=== PATIENT | female | born 1975 | race Hispanic/Latino ===

== ENCOUNTER 2020-07-21 14:28 | Emergency (ER) | payer SELFPAY ==
--- NOTE | 2020-07-21 14:36 | PC.NURSE ---
pt at registration desk, and stating that the office staff at her pmd office said that results of last weeks blood work showed her thyroid levels were elevated, and told her that she needed to be seen for her bone joint pain, and left leg pain to rule out a blood clot since she had told the office staff that she was having pain still in the left lower leg x 2 weeks since they had seen her then, explained to pt that we would be more than happy to have our provider see her, and then send her to the ER of her choice to r/o DVT. pt states that she wasnt sure where she should go to begin with, and pt stated that she is going to go on to the ER. pt has a family member to drive her. pt left facility, ambulatory and stable at this time.
== END 2020-07-21 14:39 | disposition left against medical advice (07) ==
LOC: EXPCOLL 14:35
PROVIDERS: Emergency Provider Internal Medicine Hematology & Oncology
DX: Z53.21 Procedure and treatment not carried out due to patient leaving prior to being seen by health care provider (principal)
CPT/HCPCS: 99199

== ENCOUNTER 2020-07-21 18:34 | Emergency (ER) | payer SELFPAY ==
[2020-07-21 18:49] VITALS: BP 179/112; PULSE 98; RESP 18; TEMP 36.1; O2SAT 97
[2020-07-21 18:58] VITALS: BP 179/102; PULSE 80; RESP 16; O2SAT 99
--- NOTE | 2020-07-21 19:20 | ED.LOWEXIN ---
HPI - Extremity Injury (Lower) General Chief Complaint: Recheck/Abnormal Lab/Rx Stated Complaint: dvt/body pain Time Seen by Provider: 07/21/20 19:08 History of Present Illness HPI Narrative: 45 yo femal w/ h/o morbid obesity, htn, DM, hypothyroidism presents to the ED for extremity pain. She reports that she has pain in all extremities for awhile. The pain is worse in the lwer extremities, especially in the left lower leg. She noted intermittent color change and swelling in the leg. She is concerned that she may have a DVT. She is on exogenous hormones to control her period. No h/o blood clot. She had outpatient labs done and was told that she should come to the hospital. She does not know what labs she had done or what the concern was. No CP, SOB, fever. Related Data Home Medications Medication Instructions Recorded Confirmed levothyroxine [Euthyrox] 07/21/20 metformin mg 07/21/20 norethindrone acetate mg 07/21/20 07/21/20 Allergies Allergy/AdvReac Type Severity Reaction Status Date / Time No Known Allergies Allergy Unknown Verified 07/21/20 18:56 Review of Systems Review of Systems: All systems reviewed & are unremarkable except as noted in HPI and below Constitutional: Constitutional: Denies chills and Denies fever(s) ENT: Denies sore throat Cardiovascular: Cardiovascular: Denies chest pain Respiratory: Respiratory: Denies cough and Denies dyspnea Gastrointestinal: Gastrointestinal: Denies abdominal pain Genitourinary: Genitourinary: Denies dysuria Musculoskeletal: Musculoskeletal: Reports myalgias and Reports arthralgias Neurologic: Denies numbness and Denies weakness Endocrine: Endocrine: Reports fatigue PMF Past Medical History Medical History (Updated 07/22/20 @ 00:00 by Background Daemon) Diabetes HTN (hypertension) Hypothyroidism Morbid obesity Social History Social History (Updated 07/21/20 @ 19:47 by Fransico Muñiz MD) Smoking status: Never smoker Gender identity (if verbalized by the patient): Female Exam Const: General: no acute distress and alert Nutritional Appearance: obese morbidly obese Orientation/consciousness: patient oriented x3 HENMT: Head: normal to inspection Neck: Neck: normal visual inspection Resp: Effort & Inspection: normal respiratory effort Auscultation: clear to auscultation bilaterally Cardio: Rate: regular rate Rhythm: regular rhythm GI: GI Palp: Yes Soft to palpation and No Tenderness to palpation present (GI) Skin: General skin exam: normal color Rashes: no rashes Neuro: General: patient oriented x3, moves all extremities, no focal motor deficits and CN's II-XI intact bilaterally Speech: normal speech Extrem: Other: Mild left calf tenderness Course Vital Signs Vital signs: Vital Signs Temperature 36.1 C L 07/21/20 18:49 Pulse Rate 98 07/21/20 18:49 Respiratory Rate 18 07/21/20 18:49 Blood Pressure 179/112 H 07/21/20 18:49 Pulse Oximetry 97 07/21/20 18:49 Temperature 36.8 C 07/21/20 20:26 Pulse Rate 90 07/21/20 20:26 Respiratory Rate 16 07/21/20 20:26 Blood Pressure 170/93 H 07/21/20 20:26 Pulse Oximetry 97 07/21/20 20:26 MDM - Extremity Injury (Lower) MDM Narrative Medical decision making narrative: US not available right now. Cannot fully r/o DVT. I will have her return for the Doppler in the morning. I will repeat some labs since it is unclear why she was sent here. Differential Diagnosis Differential diagnosis: Likely other (DVT, cellulitis, Fibromyalgia, RA) Medical Records Attestation: I reviewed the patient's medical records. Lab Data Attestation: I reviewed the patient's lab results. Result diagrams: 07/21/20 19:35 07/21/20 19:35 Labs: Lab Results 07/21/20 07/21/20 07/21/20 Range/Units 19:35 19:35 19:35 WBC 5.4 (4.5-10.0) K/mm3 RBC 4.23 (4.2-5.4) M/mm3 Hgb 12.8 (12.0-15.0) g/dL Hct 37.2 (37.0-47.0) % MCV 87.9
[2020-07-21 19:41] LABS: Basophils Percent Auto 0.6 % (0.2-1.2); Eosinophils Absolute Auto 0.2 K/mm3 (0-0.3); Eosinophils Percent Auto 3.1 % (0-4.4); Hematocrit 37.2 % (37.0-47.0); Hemoglobin 12.8 g/dL (12.0-15.0); Immature Granulocyte Absolute 0.02 K/mm3 (0.00-0.031); Immature Granulocyte Percent A 0.4 % (0-0.5); Lymphocytes Absolute Auto 1.98 K/mm3 (0.9-3.2); Lymphocytes Percent Auto 36.4 % (18.3-44.2); Mean Corpuscular HGB Conc 34.4 g/dl (32-36); Mean Corpuscular Hemoglobin 30.3 pg (26-34); Mean Corpuscular Volume 87.9 fl (80-100); Mean Platelet Volume 9.9 fl (7.4-10.4); Monocytes Absolute Auto 0.4 K/mm3 (0.1-0.6); Monocytes Percent Auto 7.2 % (2.6-8.5); Neutrophils Absolute Auto 2.9 K/mm3 (1.3-6.7); Neutrophils Percent Auto 52.3 % (45.5-73.1); Platelet Count Result 216 k/mm3 (150-375); Red Blood Count 4.23 M/mm3 (4.2-5.4); Red Cell Distribution Width 14.6 % (11.5-14.5); White Blood Count 5.4 K/mm3 (4.5-10.0)
[2020-07-21 19:53] LABS: Anion Gap 7 mmol/L (8-16); Blood Urea Nitrogen 12 mg/dL (7-17); Calcium 9.3 mg/dL (8.4-10.2); Carbon Dioxide 26 mmol/L (22-30); Chloride 106 mmol/L (98-107); Estimated CRCL calculation 206 ml/min; Estimated Glomerular Filt Rate > 60; Glucose 103 mg/dL (65-105); Potassium 3.8 mmol/L (3.4-5.0); Prothrombin Time 13.6 Seconds (11.1-14.7); Sodium 139 mmol/L (137-145)
[2020-07-21 19:54] LABS: Partial Thromboplastin Time 25.7 SECONDS (22.3-36.8)
[2020-07-21 19:56] LABS: D Dimer 1.13 ug/mL (<0.48)
[2020-07-21] MEDS: ENOXAPARIN 100 MG/ML SYRINGE SUB-Q (20:17)
[2020-07-21] MEDS: ENOXAPARIN 80 MG/0.8 ML SYRINGE SUB-Q (20:17)
[2020-07-21 20:26] VITALS: BP 170/93; PULSE 90; RESP 16; TEMP 36.8; O2SAT 97
== END 2020-07-21 20:28 | disposition home or self-care (01) ==
PROVIDERS: Emergency Provider Emergency Medicine; PCP Internal Medicine Gastroenterology
DX: M79.662 Pain in left lower leg (principal); I10 Essential (primary) hypertension; E11.9 Type 2 diabetes mellitus without complications; E03.9 Hypothyroidism, unspecified; E66.01 Morbid (severe) obesity due to excess calories; Z68.44 Body mass index [BMI] 60.0-69.9, adult; Z79.84 Long term (current) use of oral hypoglycemic drugs
CPT/HCPCS: 36415; 80048; 85025; 85380; 85610; 85730; 96372; 99284; J1650

== ENCOUNTER 2020-07-22 07:18 | Outpatient (CLI) | payer SELFPAY ==
--- NOTE | ~2020-07-22 | US_ITS ---
EXAMINATION:US venous doppler LE BI INDICATION:Leg pain TECHNIQUE: Multiple grayscale, color flow and Doppler images of the right and left lower extremity de ep venous systems were obtained and reviewed. COMPARISON:No prior studies for comparison. FINDINGS: The common femoral, superficial femoral and popliteal veins demonstrate normal respiratory variation, augmentation and compressibility. Color flow is also seen within the posterior tibial, pe roneal, greater saphenous and profunda veins. IMPRESSION: 1: No lower extremity deep venous thrombosis. Reviewed, dictated and finalized at location A. N [facility]
== END 2020-07-22 07:19 | disposition home or self-care (01) ==
PROVIDERS: PCP Internal Medicine Gastroenterology; Visit Provider Internal Medicine Gastroenterology
DX: M79.661 Pain in right lower leg (principal); M79.662 Pain in left lower leg
CPT/HCPCS: 93970

== ENCOUNTER 2023-12-30 10:30 | Outpatient (CLI) | payer OTHER, SELFPAY ==
[2023-12-30 11:06] LABS: Alanine Aminotransferase 22 U/L (6-35); Albumin Level 4.3 g/dL (3.5-5.1); Alkaline Phosphatase 83 U/L (38-126); Anion Gap 7 mmol/L (4-12); Aspartate Amino Transferase 29 U/L (14-36); Bilirubin,Total 0.7 mg/dL (0.2-1.3); Blood Urea Nitrogen 10 mg/dL (7-17); Carbon Dioxide 24 mmol/L (22-30); Chloride 107 mmol/L (98-107); Cholesterol 160 mg/dL (0-200); Estimated Glomerular Filt Rate > 60; Glucose 103 mg/dL (65-110); HDL Direct 24 mg/dL; Sodium 138 mmol/L (137-145); Triglycerides 176 mg/dL (<150)
[2023-12-30 11:16] LABS: LDL Cholesterol Direct 118 mg/dL
[2023-12-30 11:24] LABS: Free T4 Free Thyroxine 1.89 ng/mL (0.78-2.19)
[2023-12-30 11:28] LABS: Creatinine Urine 119.2 mg/dL
[2023-12-30 11:33] LABS: MALB Creatinine Ratio 10.3 mg/g (0-30); Microalbumin Urine Random 12.3 mg/L (0-16.7)
== END 2023-12-30 10:31 | disposition home or self-care (01) ==
PROVIDERS: PCP Internal Medicine Gastroenterology; Referring Provider Internal Medicine Gastroenterology; Visit Provider Internal Medicine Endocrinology, Diabetes & Metabolism
DX: E11.9 Type 2 diabetes mellitus without complications (principal); Z68.43 Body mass index [BMI] 50.0-59.9, adult
CPT/HCPCS: 36415; 80053; 80061; 82043; 84439

== ENCOUNTER 2024-06-09 14:23 | Emergency (ER) | payer OTHER, SELFPAY ==
--- NOTE | ~2024-06-09 | XR_ITS ---
EXAMINATION: XR finger 2nd RT min 2V DATE: 06/09/2024 14:54 INDICATION: Amputation of the tip of the right second digit TECHNIQUE: Dorsal palmar, lateral and 2 oblique views of the right second digit were obtained COMPARISON: None FINDINGS: There is amputation of a small portion of the soft tissue at the distal tip of the right second digit . There is an associated tuft fracture of the second distal phalanx. A minimally displaced small frag ment bone is insufficient to account for the expected mild bone suggesting fracture is comminuted wit h loss of a portion of the bone. Bone alignment is otherwise normal. No other fractures identified. 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 No radiopaque fo reign bodies. IMPRESSION: 1. Amputation of a portion of the distal tip of the right second distal phalanx with associated open/ compound, comminuted tuft fracture with loss of a small portion of the bone. Reviewed, dictated and finalized at location A. IMPRESSION: 1. Amputation of a portion of the distal tip of the right second distal phalanx with associated open/compound, comminuted tuft fracture with loss of a small p ortion of the bone.
[2024-06-09 14:29] VITALS: BP 158/100; PULSE 87; RESP 18; TEMP 36.5; O2SAT 98
[2024-06-09] MEDS: ONDANSETRON INJ 4 MG/2 ML VIAL IV PUSH (14:52)
[2024-06-09] MEDS: TETANUS,DIPHTHERIA,AC PERTUSSIS ADULT (0.5 ML) BOOSTRIX IM (14:52)
[2024-06-09] MEDS: MORPHINE SULFATE (*CRX) 4 MG/ML INJ IV PUSH (14:52)
--- NOTE | 2024-06-09 15:00 | ED_ITS ---
HPI - Extremity Injury (Upper) General Chief Complaint: Extremity Injury, Upper Stated Complaint: cut off finger Time Seen by Provider: 06/09/24 14:38 Source: patient Mode of arrival: ambulatory Limitations: no limitations History of Present Illness HPI narrative: This is a 49 year old female that presents to the ER for right 2nd finger injury. Reports she accidentally shut her finger in the car door. Reports cut ting off the end of her finger. Reports bleeding and pain to the area. She is not up to date on tetanus. Reports decreased ROM due to pain. Denies numbness. Related Data Home Medications Medication Instructions Recorded Confirmed norethindrone acetate 5 mg tablet mg 07/21/20 04/05/24 folic acid 1 mg tablet 1 mg PO DAILY 12/30/23 04/05/24 hydroxychloroquine 200 mg tablet 200 mg PO BID 12/30/23 04/05/24 losartan 25 mg tablet 25 mg PO DAILY 12/30/23 04/05/24 methotrexate sodium 2.5 mg tablet 2.5 mg PO WEEKLY 12/30/23 04/05/24 levothyroxine 175 mcg tablet 175 mcg PO .COMPLEX 04/05/24 04/05/24 (Euthyrox) Allergies Allergy/AdvReac Type Severity Reaction Status Date / Time No Known Allergies Allergy Unknown Verified 04/05/24 11:42 Review of Systems Review of Systems: CONSTITUTIONAL: Denies fever SKIN: Reports laceration NEUROLOGIC: Denies numbness All systems reviewed & are unremarkable except as noted in HPI and below PMFSH Past Medical History Medical History (Updated 06/09/24 @ 17:40 by Brianna Jasso PA-C) Diabetes HTN (hypertension) Hyperlipidemia associated with type 2 diabetes mellitus Hypothyroidism Morbid obesity Surgical History Surgical History H/O gastric sleeve Family History Family History Daughter No problems noted. Father Diabetes mellitus Malignant neoplasm of prostate Mother Diabetes mellitus Cancer Kidney disease Social History Social History Smoking status: Never smoker Gender identity (if verbalized by the patient): Female Exam Narrative: GENERAL: Well-appearing, well-nourished, and in no acute distress. HEAD: Normocephalic, atraumatic. EYES: EOMI. EXTREMITIES: Normal range of motion. Normal sensation. Amputation of the soft tissue to the right hand 2nd finger distal phalanx SKIN: Warm, dry, no rash. NEURO: No focal deficits. Alert and oriented x3. PSYCH: Normal mood and affect Course Course Emergency Course: Patient agrees with plan of care Consultations Consultation #1: Spoke with [facility], was on time critical diagnosis Date: 06/09/24 Consultation #2: spoke with [facility], also on time critical diagnosis Date: 06/09/24 Consultation #3: spoke with Hand surgery, Dr. Mahoney, about patient and workup. Will place bandage and she can follow-up in his clinic in the morning Date: 06/09/24 Vital Signs Vital signs: Vital Signs Temperature 97.7 F 06/09/24 14:29 Pulse Rate 87 06/09/24 14:29 Respiratory Rate 18 06/09/24 14:29 Blood Pressure 158/100 H 06/09/24 14:29 Pulse Oximetry 98 06/09/24 14:29 Temperature 97.7 F 06/09/24 14:29 Pulse Rate 89 06/09/24 17:07 Respiratory Rate 18 06/09/24 17:07 Blood Pressure 139/88 06/09/24 17:07 Pulse Oximetry 100 06/09/24 17:07 MDM - Extremity Injury (Upper) MDM Narrative Medical decision making narrative: Patient presents the emergency department after cutting off the tip of her right 2nd finger. She is neurovascularly intact. Right 2nd finger x-ray shows amputation of a portion of the distal tip of the right 2nd distal phalanx with associated open, comminuted tuft fracture with loss of a small portion of the bone. wound was irrigated at. Patient given a dose of Ancef. Tetanus updated. She was bandaged as directed by Hand surgery. She will see the hand surgeon in the morning for follow-up. She was given warnings to return to the ER Differential Diagnosis Differential diagnosis: Likely other ( finger fracture, complex laceration) Imaging Data Radiologist's impression: ITS Impressions Finger X-Ray 06/09/24 14:55 IMPRESSION: 1. Amputation of a portion of the distal tip of the right second distal phalanx with associated open/compound, comminuted tuft fracture with loss of a small portion of the bone. Critical Care Time Critical Care Time Critical Care Time: No Discharge Plan Discharge Clinical Impression: Open finger fracture Qualifiers: Encounter type: initial encounter Finger: index finger Phalanx: distal Fracture alignment: displaced Laterality: right Qualified Code(s): S62.630B - Displaced fracture of distal phalanx of right index finger, initial encounter for open fracture Patient Disposition: Home, Self-Care Condition: Stable Instructions: Antibiotic Form, Finger Fracture (ED) Additional Instructions: Return to the emergency department if you experience fever, redness or swelling of your wound, abnormal drainage from your wound, or any other symptoms that are concerning to you. Take oral antibiotic as prescribed. Rest. Elevate. Over the counter pain medication as needed. Prescribed pain medication as needed. Leave bandage in place until you see the hand surgeon (Dr. Mahoney) in the morning He will see you at his [place] office at 9 AM. [address] [facility], [address] [place] [address] Prescriptions: New cephalexin 500 mg capsule 500 mg PO Q6H 7 Days Qty: 28 0RF hydrocodone-acetaminophen 5-325 mg tablet 1 tablet PO Q8H PRN (Reason: pain) Qty: 20 0RF No Action losartan 25 mg tablet 25 mg PO DAILY methotrexate sodium 2.5 mg tablet 2.5 mg PO WEEKLY hydroxychloroquine 200 mg tablet 200 mg PO BID folic acid 1 mg tablet 1 mg PO DAILY Ozempic 1 mg/dose (4 mg/3 mL) pen injector 1 mg subcut WEEKLY Qty: 9 1RF norethindrone acetate 5 mg tablet levothyroxine [Euthyrox] 175 mcg tablet 175 mcg PO .COMPLEX Rx Instructions: 175 mcg orally 6 days a week; rosuvastatin 5 mg tablet 5 mg PO DAILY Qty: 90 0RF Follow-up/Referrals: Mariangel,Walter Mott MD [Primary Care Provider] -
[2024-06-09] MEDS: ceFAZolin 1 GM/NS 50 ML 1 GM/50 ML BAG IVPB (15:52)
[2024-06-09 17:07] VITALS: BP 139/88; PULSE 89; RESP 18; O2SAT 100
[2024-06-09] MEDS: HYDROcodone/acetaminophen (*CRX) 5-325 MG TABLET 1 TAB PO (17:43)
[2024-06-09 18:44] VITALS: BP 129/90; PULSE 78; RESP 20; TEMP 36.6; O2SAT 100
== END 2024-06-09 18:46 | disposition home or self-care (01) ==
PROVIDERS: Emergency Provider Physician Assistant; PCP Internal Medicine Gastroenterology
DX: S62.630B Displaced fracture of distal phalanx of right index finger, initial encounter for open fracture (principal); W23.0XXA Caught, crushed, jammed, or pinched between moving objects, initial encounter; E11.9 Type 2 diabetes mellitus without complications; I10 Essential (primary) hypertension; E78.5 Hyperlipidemia, unspecified; E03.9 Hypothyroidism, unspecified; E66.01 Morbid (severe) obesity due to excess calories; Z68.42 Body mass index [BMI] 45.0-49.9, adult; Z23 Encounter for immunization
CPT/HCPCS: 73140; 90471; 90715; 96365; 96375; 99284; A9270; J0690; J2270; J2405